=== PATIENT | female | born 1990 | race Caucasian/White ===

== ENCOUNTER → 2017-11-08 | Outpatient (CLI) | payer OTHER ==
[~2017-11-08] MED LIST: MTR600X PO; PRENTAB26 PO
== END | disposition home or self-care (01) ==
LOC: C.LABSPEC 17:27
PROVIDERS: ATTEND Obstetrics & Gynecology
DX: N76.2 Acute vulvitis (principal)

== ENCOUNTER 2018-06-04 10:42 | Emergency (ER) | payer OTHER ==
[~2018-06-04] VITALS: Ht 158.8 cm; Wt 55.8 kg
[2018-06-04 10:45] VITALS: TEMP 36.7; Ht 158.8 cm; Wt 55.8 kg
[2018-06-04] MEDS ORDERED: KETOROLAC TROMETHAMINE 30 MG/ML VIAL IV STA (10:59)
[2018-06-04] MEDS ORDERED: OPTIRAY 320 IV PRN (11:15)
[2018-06-04 11:33] LABS: EOS % 2.2 %; EOS ABS # 0.08 K/uL (0-0.5); HEMATOCRIT 40.4 % (37-47); HEMOGLOBIN 13.8 g/dL (12.0-16.0); LYMPH % 46.2 %; LYMPH ABS # 1.66 K/uL (1.2-3.4); MEAN CELL VOLUME 81.3 fL (80-100); MEAN CORPUSCULAR HEMOGLOBIN 27.8 pg (25-34); MEAN CORPUSCULAR HGB CONC 34.2 g/dl (32-36); MEAN PLATELET VOLUME 9.2 fL (7.4-10.4); MONO % 6.1 %; MONO ABS # 0.22 K/uL (0.11-0.59); NEUT % 45.5 %; NEUT ABS # 1.63 K/uL (1.4-6.5); PLATELET COUNT 254 K/uL (130-400); RED CELL DISTRIBUTION WIDTH CV 13.1 % (11.5-14.5); RED CELL DISTRIBUTION WIDTH SD 39.1 fL (36.4-46.3); WHITE BLOOD COUNT 3.59 K/uL (4.8-10.8)
[2018-06-04 11:53] LABS: ALBUMIN 3.6 gm/dl (3.4-5.0); ALKALINE PHOSPHATASE 42 U/L (45-117); ALT/SGPT 14 U/L (12-78); AST/SGOT 11 U/L (15-37); BLOOD UREA NITROGEN 7 mg/dl (7-18); CALCIUM 8.2 mg/dl (8.5-10.1); CARBON DIOXIDE 25 mmol/L (21-32); CREATININE 0.53 mg/dl (0.60-1.20); GLUCOSE 77 mg/dl (70-99); LIPASE 89 U/L (73-393); POTASSIUM 3.7 mmol/L (3.5-5.1); SODIUM 141 mmol/L (136-145); TOTAL PROTEIN 7.6 gm/dl (6.4-8.2)
--- NOTE | 2018-06-04 12:43 | DIAGNOSTIC IMAGING REPORT ---
CT ABD/PELVIS IV CONTRAST ONLY CLINICAL HISTORY: suprapubic and R lower abdominal pain COMPARISON STUDY: None. TECHNIQUE: Following the IV administration of 92 mL of Optiray-320, CT scan of the abdomen and pelvis was performed from the lung bases to the proximal femurs. Images are reviewed in the axial, sagittal, and coronal planes. IV contrast was administered without complication. A dose lowering technique was utilized adhering to the principles of ALARA. CT DOSE: 287.12 mGy.cm FINDINGS: Lower chest: The heart is normal in size and configuration, without pericardial effusion. The lung bases and pleural spaces are clear. Liver: The contrast-enhanced liver is normal in size, contour, and attenuation. There is no intrahepatic biliary ductal dilatation. The hepatic veins and portal veins are patent. Gallbladder: Unremarkable. Spleen: Normal in size and attenuation. Pancreas: Unremarkable. Adrenal glands: Unremarkable. Kidneys: There is symmetric renal cortical enhancement. The kidneys are normal in size without hydronephrosis. Bowel: There are no transition zones indicate bowel obstruction. There is no acute diverticulitis. The appendix is difficult to visualize on this examination performed without intravenous or oral contrast. There is pericecal fluid present. Peritoneum: There is free pelvic fluid which is greater than expected for physiologic free fluid. Vasculature: The abdominal aorta is normal in course and caliber. Adenopathy: None. Pelvic viscera: Bilateral ovarian follicles are visualized. No uterine masses are evident Skeletal structures: No destructive osseous lesions are seen. IMPRESSION: 1. No evidence of bowel obstruction. No evidence of free air 2. The appendix was not visualized with certainty on this examination performed without the benefit of oral contrast 3. Free pelvic fluid which is greater than expected for physiologic free fluid. In a female of this age with pelvic pain this raises the possibility of a ruptured ovarian cyst. Clinical correlation in this regard is advocated. Electronically signed by: Mukund Abebe M.D. 06/04/2018 12:42 PM Dictated Date/Time: 06/04/2018 12:35 PM
[2018-06-04] MEDS ORDERED: IBUP600T44 PO (12:59)
[2018-06-04 13:08] VITALS: BP 117/74; PULSE 59; O2SAT 100
--- NOTE | 2018-06-04 16:27 | EMERGENCY ROOM VISIT NOTE ---
History Report prepared by Christina: Jessica Arzola Under the Supervision of: Dr. Dada Lazo M.D. 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 She reports when she woke up this morning, her pain was radiating to her back so she came to the ED. She also notes she had some pain while having a bowel movement today which is abnormal for her. She states walking worsens her pain. Pt has increased urinary frequency but denies any fevers, rashes, nausea, SOB, or being around anyone else who is sick. 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 Offered the patient a a referral and information aide however she declined. 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 Negative being around anyone else who is sick Review of Systems See HPI for pertinent positives and negatives. A total of ten systems were reviewed and were otherwise negative. 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 (2) Prolonged , antepartum (3) Supervision of other normal Family History No pertinent family history Social History Smoking Status: Never Smoker Marital Status: in relationship Housing Status: lives with family Current/Historical Medications Scheduled PRN Ibuprofen (Motrin), 600 MG PO TID PRN for Pain Allergies Coded Allergies: No Known Allergies (Unverified , 06/04/18) Physical Exam Vital Signs Date Time Temp Pulse Resp B/P (MAP) Pulse Ox O2 Delivery O2 Flow Rate FiO2 06/04/18 13:08 59 18 117/74 100 06/04/18 12:35 58 16 104/66 99 Room Air 06/04/18 12:06 63 06/04/18 10:45 36.7 70 18 106/66 97 Room Air Physical Exam GENERAL: Awake, alert, well-appearing, in no distress HENT: Normocephalic, atraumatic. Oropharynx unremarkable. EYES: Normal conjunctiva. Sclera non-icteric. NECK: Supple. No nuchal rigidity. RESPIRATORY: Clear to auscultation. No wheezes. Normal respiratory effort. CARDIAC: Normal rate. Normal rhythm. Extremities warm and well perfused. GI: Soft, suprapubic and lower abdominal pain mild to palpation. No rebound, not peritoneal. RECTAL: Deferred. MUSCULOSKELETAL: Atraumatic. Chest examination reveals no tenderness. There is no CVA tenderness to palpation. LOWER EXTREMITIES: Calves are equal size bilaterally and non-tender. No edema NEURO: Normal sensorium. No sensory or motor deficits noted. No facial droop. SKIN: Warm and dry. No rash or jaundice noted. Medical Decision & Procedures Laboratory Results 06/04/18 11:24 Red Blood Count 4.97, Mean Corpuscular Volume 81.3, Mean Corpuscular Hemoglobin 27.8, Mean Corpuscular Hemoglobin Concent 34.2, Mean Platelet Volume 9.2, Neutrophils (%) (Auto) 45.5, Lymphocytes (%) (Auto) 46.2, Monocytes (%) (Auto) 6.1, Eosinophils (%) (Auto) 2.2, Basophils (%) (Auto) 0.0, Neutrophils # (Auto) 1.63, Lymphocytes # (Auto) 1.66, Monocytes # (Auto) 0.22, Eosinophils # (Auto) 0.08, Basophils # (Auto) 0.00 06/04/18 11:24 Test 06/04/18 11:20 06/04/18 11:24 Urine Color YELLOW Urine Appearance CLEAR (CLEAR) Urine pH 7.0 (4.5-7.5) Urine Specific Morrison 1.016 (1.000-1.030) Urine Protein NEG (NEG) Urine Glucose (UA) NEG (NEG) Urine Ketones NEG (NEG) Urine Occult Blood NEG (NEG) Urine Nitrite NEG (NEG) Urine Bilirubin NEG (NEG) Urine Urobilinogen NEG (NEG) Urine Leukocyte Esterase NEG (NEG) White Blood Count 3.59 K/uL (4.8-10.8) Red Blood Count 4.97 M/uL (4.2-5.4) Hemoglobin 13.8 g/dL (12.0-16.0) Hematocrit 40.4 % (37-47) Mean Corpuscular Volume 81.3 fL (80-100) Mean Corpuscular Hemoglobin 27.8 pg (25-34) Mean Corpuscular Hemoglobin Concent 34.2 g/dl (32-36) Platelet Count 254 K/uL (130-400) Mean Platelet Volume 9.2 fL (7.4-10.4) Neutrophils (%) (Auto) 45.5 % Lymphocytes (%) (Auto) 46.2 % Monocytes (%) (Auto) 6.1 % Eosinophils (%) (Auto) 2.2 % Basophils (%) (Auto) 0.0 % Neutrophils # (Auto) 1.63 K/uL (1.4-6.5) Lymphocytes # (Auto) 1.66 K/uL (1.2-3.4) Monocytes # (Auto) 0.22 K/uL (0.11-0.59) Eosinophils # (Auto) 0.08 K/uL (0-0.5) Basophils # (Auto) 0.00 K/uL (0-0.2) RDW Standard Deviation 39.1 fL (36.4-46.3) RDW Coefficient of Variation 13.1 % (11.5-14.5) Immature Granulocyte % (Auto) 0.0 % Immature Granulocyte # (Auto) 0.00 K/uL (0.00-0.02) Anion Gap 9.0 mmol/L (3-11) Est Creatinine Clear Calc Drug Dose 131.4 ml/min Estimated GFR () > 150.0 Estimated GFR (Non- 132.0 BUN/Creatinine Ratio 12.3 (10-20) Calcium Level 8.2 mg/dl (8.5-10.1) Total Bilirubin 0.4 mg/dl (0.2-1) Direct Bilirubin 0.1 mg/dl (0-0.2) Aspartate Amino Transf (AST/SGOT) 11 U/L (15-37) Alanine Aminotransferase (ALT/SGPT) 14 U/L (12-78) Alkaline Phosphatase 42 U/L (45-117) Total Protein 7.6 gm/dl (6.4-8.2) Albumin 3.6 gm/dl (3.4-5.0) Lipase 89 U/L (73-393) Human Chorionic Gonadotropin, Qual NEG (NEG) Laboratory results reviewed by me Medications Administered Medications (Trade) Dose Ordered Sig/Cynthia Route Start Time Stop Time Status Last Admin Dose Admin Ketorolac Tromethamine (Toradol Inj) 15 mg NOW STAT IV 06/04/18 10:59 06/04/18 11:01 DC 06/04/18 11:25 15 MG ED Course 1053: The patient was evaluated in room C11. A complete history and physical exam was performed. 1059: Ordered Toradol Inj 15 mg IV 1254: I reevaluated the patient. Discussed results and discharge instructions: She verbalized understanding and agreement. The patient is ready for discharge. Medical Decision Triage Nursing notes reviewed. Differential diagnosis: Etiologies such as appendicitis, diverticulitis, PUD, biliary pathology, UTI, pancreatitis, obstruction, mesenteric ischemia, aortic pathology, infections, inflammatory bowel disease, renal colic, as well as others were entertained. Patient presents with abdominal pain. Denies trauma or fever. Fairly constant and about a week; states episodes over the past several years like this. States eating and drinking okay. Denies nausea. Denies vaginal complaints of bleeding or significant cramping. Endorses urinary frequency. Doubt this nephrolithiasis, hepatitis, or pancreatitis based on laboratory studies. negative. No leukocytosis. Urinalysis is negative. Labs are unremarkable. Do not believe this is ovarian torsion. CT abdomen and pelvis with no significant acute intra-abdominal process. There is some increase in free fluid in the pelvis consistent with a possible ruptured ovarian cyst. She is having some lower abdominal pain but is not really sided at the present time. Believe her pain may be related to an ovarian cyst that is ruptured. We will send her home on Motrin to help with her pain symptoms and recommend outpatient OB follow-up. Discussed return criteria and she and her are agreeable with this. Medication Reconcilliation Current Medication List: was personally reviewed by me Blood Pressure Screening Patient's blood pressure: Normal blood pressure Blood pressure disposition: Did not require urgent referral Impression Primary Impression: Ruptured ovarian cyst Additional Impression: Abdominal pain Scribe Attestation The scribe's documentation has been prepared under my direction and personally reviewed by me in its entirety. I confirm that the note above accurately reflects all work, treatment, procedures, and medical decision making performed by me. Departure Information Dispostion Home / Self-Care Prescriptions Ibuprofen (Motrin) 600 Mg Tab 600 MG PO TID Y for Pain, #18 TAB With Food Prov: Dada Lazo M.D. 06/04/18 Referrals No Doctor, Assigned (PCP) Forms HOME CARE DOCUMENTATION FORM, IMPORTANT VISIT INFORMATION Patient Instructions My [facility] Additional Instructions Please utilize the prescribed medication to help with your pain. Do not take Advil while on this medicine. If you begin to experience different or more severe pain or other symptoms return here for reevaluation. Otherwise within the next 2-3 weeks follow-up with your civil preparedness coordinator Dr. Segura. Continue to maintain good hydration. Problem Qualifiers Additional Impression: Abdominal pain Abdominal location: lower abdomen, unspecified Qualified Codes: R10.30 - Lower abdominal pain, unspecified
== END 2018-06-04 13:10 | disposition home or self-care (01) ==
LOC: C.EDB 10:44 → C.EDC 13:10
DX: N83.10 Corpus luteum cyst of ovary, unspecified side (principal); R10.30 Lower abdominal pain, unspecified; M54.9 Dorsalgia, unspecified; R35.0 Frequency of micturition

== ENCOUNTER 2022-09-20 12:13 | Inpatient (IN) ==
[2022-09-20] MEDS ORDERED: LIDOCAINE 1% LOCAL 20 ML VIAL INFIL PRN (12:55)
[2022-09-20] MEDS ORDERED: OXYTOCIN 30 UNITS/500 ML BAG IV PRN ×2 (12:55→18:15)
--- NOTE | 2022-09-20 13:06 | History & Physical Report ---
Date of Service September 20, 2022 Assessment & Plan (1) : Plan: 32 yo at 40 5/7 wga presents in labor VSS Fetus cat 1 Labor - expectant management GBS neg desires epidural History of Present Illness Chief Complaint: Labor Primary Care Provider: Mee Dash MD 32 yo at 40 5/7 wga presents w/ ctx increasing in frequency and intensity. 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 hx: G1 2016 at 41 wks G2 current q30d cycles denies hx STIs 05/2019 neg cyto Allergies Allergy/AdvReac Type Severity Reaction Status Date / Time No Known Allergies Allergy Verified 09/17/22 14:24 Home Medications Medication Instructions Recorded Confirmed Type prenat.vits,adrian,[id number] 1 tab PO DAILY 01/28/22 09/20/22 History ferrous sulfate 325 mg (65 mg 325 mg PO DAILY 09/20/22 09/20/22 History iron) tablet Patient History Medical History Abdominal pain Congenital anomaly of heart History of chicken pox Ruptured ovarian cyst Surgical History History of wisdom tooth extraction Family History Mother Hypercholesterolemia Hypertension Father Diabetes Son No problems noted. 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 Beliefs That Will Affect Care: None marital status: marital status details: Antonio (36) [phone] Current Living Situation: Spouse and Family Current Living Situation Comment: Lives with and son, no pets current occupational status: unemployed 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 Other Information That Helps Us Care for You: No Feels Safe at Home: Yes Safety Concerns: Feels Safe At This Time Childhood Exposure to Second-Hand Smoke: No Dental Care, Regularly: Yes Physical Activity Frequency: 1-2 Times per Week Seatbelt Use: always Sunscreen Use: Yes Do you think of yourself as: straight/heterosexual Assistive Devices: None Physical Exam Genitourinary: OB Exam Abdomen: + vertex and + estimated weight (7) Manual OB Exam: + cervical dilation (4-5), + cervical effacement 70% and + station -2 OB Exam Monitor Tracing: + external FHT monitor used, + external uterine monitor used (q6-7) and + category I (130/mod/+accel-decel) Results & Data ([facility]) Vital Signs (Past 12 Hours) Vital Signs Temp Pulse Resp BP 09/20/22 12:30 98.1 F 20 09/20/22 12:21 56 L 131/85 Laboratory Results OB Labs: Blood Type A Positive 02/03/22 Antibody Screen NEGATIVE 02/03/22 Hemoglobin 10.5 g/dl (12.0-16.0) L 06/23/22 Hematocrit 31.1 % (34.1-44.9) L 06/23/22 Mean Corpuscular Volume 81.9 fL (80-100) 02/03/22 Platelet Count 316 K/uL (130-400) 02/03/22 Rubella IgG Antibody Non Immune (Immune) L 02/03/22 Rapid Plasma Reagin Nonreactive (Nonreactive) 02/03/22 Hepatitis B Surface Antigen. NON-REACTIVE (NON-REACTIVE) 02/03/22 Hepatitis C Antibody (EIA) NON-REACTIVE (NON-REACTIVE) 02/03/22 HIV (1&2) Ag and Ab Confirmation NON-REACTIVE (NON-REACTIVE) 02/03/22 Glucose 1 Hour 50 gm Load 163 mg/dl (70-130) H 06/23/22 OB Optional Labs: Chlamydia trachomatis RNA NOT DETECTED (NOT DETECTED) 02/03/22 Neisseria gonorrhoeae RNA NOT DETECTED (NOT DETECTED) 02/03/22 Thyroid Stimulating Hormone (TSH)E 1.290 uIu/ml (0.300-4.500) 10/20/18 Labs Reviewed: low risk panorama--[facility] passed 28 week gtt--[facility] gbs neg --[facility] Diagnostic Findings 08/21 EFW 42%, post plac Coding Level of Care Code None Diagnoses Z34.90
[2022-09-20] MEDS: LACTATED RINGER'S 1,000 ML IV PRN ×2 (13:07→14:06)
[2022-09-20 13:29] LABS: Hematocrit (blood only) 35.1 % (34.1-44.9); Mean Corpuscular Hemoglobin 28.4 pg (25.0-34.0); Mean Corpuscular Hgb Conc 34.2 g/dL (32.0-36.0); Mean Platelet Volume 10.1 fL (9.4-12.3); Platelet Count 286 K/uL (130-400); RDW Coefficient of Variation 13.2 % (11.5-14.5); RDW Standard Deviation 39.8 fL (36.4-46.3); Red Blood Count 4.23 M/uL (3.93-5.22)
[2022-09-20] MEDS ORDERED: ePHEDrine sulfate 50 MG/ML AMP ONE (13:32)
[2022-09-20] MEDS ORDERED: fentaNYL citrate 100 MCG/2 ML VIAL ONE (13:32)
[2022-09-20] MEDS ORDERED: LIDOCAINE 2%/EPINEPHRINE 1:200,000 20 ML SDV ONE (13:32)
[2022-09-20] MEDS ORDERED: SODIUM CHLORIDE 0.9% INJ 10 ML VIAL ONE (13:32)
[2022-09-20] MEDS ORDERED: BUPIVACAINE 0.25% 30 ML VIAL ONE (13:32)
[2022-09-20] MEDS ORDERED: fentaNYL 2MCG/ML ROPIVACAINE 1.25MG/ML 100 ML BAG EPI ONE (13:33)
--- NOTE | 2022-09-20 13:53 | Anesthesiology Consultation ---
Date of Service September 20, 2022 Assessment & Plan Chart Review Chart Review: Acceptable Risk for Labor Epidural Consults Requested none ASA ASA2 Proposed Anesthesia Anesthesia Type: Labor Epidural Risk / Benefits Reviewed With: PT / POA / Parent / Guardian, Accepts Plan and Informed Consent Obtained History Height/Weight Height: 5 ft 2.2 in Weight: 71.214 kg Allergies Allergy/AdvReac Type Severity Reaction Status Date / Time No Known Allergies Allergy Verified 09/17/22 14:24 Medications Home Medications Medication Instructions Recorded Confirmed Last Taken prenat.vits,adrian,xtv-jluj-hqbty 1 tab PO DAILY 01/28/22 09/20/22 09/19/22 ferrous sulfate 325 mg (65 mg 325 mg PO DAILY 09/20/22 09/20/22 09/20/22 iron) tablet Active Medications Generic Name Dose Route Start Last Admin Trade Name Freq PRN Reason Stop Dose Admin Lactated Ringer's 1,000 mls @ 125 mls/hr 09/20/22 12:55 09/20/22 13:07 Lr IV 09/22/22 12:54 999 mls/hr .Q8H PRN Administration L&D Protocol Protocol Past Medical History Medical History Abdominal pain Congenital anomaly of heart History of chicken pox Ruptured ovarian cyst Exercise / Class Metabolic Activity II 4-5 Yardwork/Stairs/Walk up hill Past Family History Family History Mother Hypercholesterolemia Hypertension Father Diabetes Son No problems noted. Other Congenital heart disease Kidney disease No family history of adverse response to anesthesia Denies family history of Ovarian cancer Prostate cancer Myocardial infarction Breast cancer Colorectal cancer Past Surgical History Surgical History History of wisdom tooth extraction Past Anesthesia History No Hx of Anesthesia Complications and No Family Hx of Anesthesia Complications History of PONV No Hx of PONV and No Hx of Motion Sickness Social History Smoking Status: Never smoker Hx Alcohol Use: No Hx Substance Use: No substance use type: does not use Physical Exam Vital Signs Last Vital Signs Temp 98.1 F 09/20/22 12:30 Pulse 62 09/20/22 13:48 Resp 20 09/20/22 12:30 BP 131/85 09/20/22 12:21 Pulse Ox 99 12/11/22 13:48 ENMT Mouth: no dentition abnormality Thyromental Distance: > or= 3.5 Finger Breadths Mallampati Class: II Neck normal visual inspection Respiratory normal respiratory effort Auscultation: lungs clear to auscultation bilaterally Cardiovascular Rate/Rhythm: regular rate and regular rhythm Testing Laboratory Results 09/20/22 13:01
[2022-09-20] MEDS ORDERED: NALOXONE HCL 0.4 MG/1 ML VIAL/CARP IV PRN (14:12)
[2022-09-20] MEDS ORDERED: ePHEDrine sulfate 50 MG/ML AMP IV PRN (14:12)
[2022-09-20] MEDS ORDERED: fentaNYL 2MCG/ML ROPIVACAINE 1.25MG/ML 100 ML BAG EPI PRN (14:12)
[2022-09-20] MEDS ORDERED: NALBUPHINE HCL INJ 10 MG/ML AMP IV PRN (14:12)
[2022-09-20] MEDS ORDERED: NALOXONE HCL 1 MG in SODIUM CHLORIDE 0.9% 1000ML 1,000 ML IV PRN (14:12)
[2022-09-20] MEDS ORDERED: diphenhydrAMINE 50 MG/ML VIAL IV PRN (14:12)
[2022-09-20] MEDS ORDERED: ONDANSETRON INJ 2 MG/ML 2 ML VIAL IV PRN (14:12)
--- NOTE | 2022-09-20 15:19 | Labor Progress Brief Note ---
Date of Service September 20, 2022 Subjective comfortable /w epidural Assessment & Plan (1) : Plan: 32 yo at 40 5/7 wga presents in labor VSS Fetus cat 1 Labor - SROM noted, pt thinks had some leaking just before epidural. Will recheck in few hours GBS neg epidural in place Admission and Anticipated Discharge Date Admission Date: September 20, 2022 Physical Exam Genitourinary: Manual OB Exam: + cervical dilation 5 cm, + cervical effacement 70%, + station -2 and + amniotic fluid (SROM) clear and nitrazine positive OB Exam Monitor Tracing: + external FHT monitor used, + external uterine monitor used (q6-7) and + category I (120/mod/+accel-decel) Results & Data ([facility]) Vital Signs (Past 12 Hours) Vital Signs Temp Pulse Resp BP Pulse Ox 09/20/22 12:30 98.1 F 20 09/20/22 15:13 99 09/20/22 15:13 56 L 09/20/22 15:10 65 09/20/22 15:10 117/71 09/20/22 15:00 18 09/20/22 15:00 18 09/20/22 15:08 97 09/20/22 15:08 60 09/20/22 15:04 66 09/20/22 15:04 113/74 09/20/22 15:03 97 09/20/22 15:03 65 09/20/22 15:00 67 09/20/22 15:00 112/63 09/20/22 14:58 98 09/20/22 14:58 67 09/20/22 14:53 98 09/20/22 14:53 67 09/20/22 14:54 66 09/20/22 14:54 117/62 09/20/22 14:50 80 09/20/22 14:50 137/64 09/20/22 14:48 96 09/20/22 14:48 88 09/20/22 14:30 20 09/20/22 14:30 99.0 F 20 09/20/22 14:44 57 L 09/20/22 14:44 133/83 09/20/22 14:43 98 09/20/22 14:43 57 L 09/20/22 14:40 62 09/20/22 14:40 119/66 09/20/22 14:38 97 09/20/22 14:38 63 09/20/22 14:34 61 09/20/22 14:34 128/62 09/20/22 14:33 97 09/20/22 14:33 62 09/20/22 14:30 66 09/20/22 14:30 155/75 H 09/20/22 14:28 97 09/20/22 14:28 70 09/20/22 14:23 97 09/20/22 14:23 58 L 09/20/22 14:18 97 09/20/22 14:18 60 09/20/22 14:18 58 L 09/20/22 14:18 120/67 09/20/22 14:16 61 09/20/22 14:16 113/68 09/20/22 14:14 57 L 09/20/22 14:14 115/72 09/20/22 14:13 100 09/20/22 14:13 61 09/20/22 14:13 58 L 09/20/22 14:13 117/71 09/20/22 14:11 57 L 09/20/22 14:11 128/69 09/20/22 14:08 98 09/20/22 14:08 67 09/20/22 14:09 64 09/20/22 14:09 132/65 09/20/22 14:05 60 09/20/22 14:05 133/85 09/20/22 14:03 98 09/20/22 14:03 70 09/20/22 13:58 99 09/20/22 13:58 61 09/20/22 13:53 100 09/20/22 13:53 72 09/20/22 13:48 99 09/20/22 13:48 62 09/20/22 13:43 100 09/20/22 13:43 85 09/20/22 13:38 100 09/20/22 13:38 65 09/20/22 12:21 56 L 131/85 Coding Level of Care Code None Diagnoses Z34.90
--- NOTE | 2022-09-20 18:05 | Delivery Summary ---
Vaginal Delivery Summary Date of Service September 20, 2022 Vaginal Delivery Summary and 2nd Degree LAC PREOPERATIVE DIAGNOSIS: 1. Single intrauterine at 40 5/7 wga 2. Labor 3. Hx congenital heart defect POSTOPERATIVE DIAGNOSIS: 1. Single intrauterine at 40 5/7 wga 2. Labor 3. Hx congenital heart defect 4. Delivered PROCEDURE: 1. Normal spontaneous vaginal delivery. SURGEON: Nathalia Borges MD ANESTHESIA: Epidural. ESTIMATED BLOOD LOSS: 300 mL FLUIDS: Continuous LR. URINE OUTPUT: None. COMPLICATIONS: None. CONDITION: Stable. INDICATIONS: 32 yo at 40 5/7 wga presented earlier today with contractions increasing in frequency and intensity. She was found to be 5cm on arrival. She had SROM and received epidural. She progressed to complete and desired to push. FINDINGS: A viable female infant, weight pending with Apgars of 8 and 9 at 1 and 5 minutes respectively. SPECIMEN: Cord blood OPERATIVE REPORT: The patient progressed to 10 cm, 100% effaced and +2 station, pushed over intact perineum with anesthesia to deliver a viable female infant, weight and Apgars as above. Head of delivered in JOSH position. No nuchal cord was present. Body and shoulders were delivered without difficulty. was delivered to maternal abdomen and nursing staff. Delayed cord clamping was performed for 60 seconds. Cord was clamped and cut. Cord blood was obtained. Placenta delivered spontaneously intact with 3-vessel cord. IV oxytocin and fundal massage were given for excellent hemostasis. Vagina, cervix, perineum, and placenta were inspected. A second degree and vaginal laceration were noted and repaired using 3-0 vicryl, there was good hemostasis. Sponge and needle counts correct x2. No sponges were left behind. Mother and stable in immediate period. [facility] Vaginal Delivery Charge Vaginal Delivery Codes: 42175 global code for the antepartum, delivery, and post- Delivery Type Details: and 2nd Degree LAC
--- NOTE | 2022-09-20 18:14 | Anesthesia Procedure Note ---
Date of Service September 20, 2022 Anesthesia Post Epidural Note Vital Signs Vital Signs: Temp Pulse Resp BP Pulse Ox 37.2 C 58 L 20 127/72 100 09/20/22 14:30 09/20/22 18:09 09/20/22 17:15 09/20/22 18:09 09/20/22 17:48 Pain Intensity Lower Abdomen: Pain Intensity: 4 Notes Mental Status: alert / awake / arousable and participated in evaluation Nausea / Vomiting: adequately controlled Pain: adequately controlled Airway Patency, RR, SpO2: stable & adequate BP & HR: stable & adequate Hydration State: stable & adequate Neuraxial Anesthesia: was administered and sensory block is resolving Anesthetic Complications: no major complications apparent and Pt Satisfied with anesthetic care Epidural: Removed without complications and With tip intact
[2022-09-20] MEDS ORDERED: DIPHTHERIA/TETANUS/PERTUSSIS 0.5 ML SYR/VIAL IM ONE (18:15)
[2022-09-20] MEDS ORDERED: MEASLES, MUMPS & RUBELLA VIRUS VIAL SQ ONE (18:15)
[2022-09-20] MEDS ORDERED: bisacodyL 10 MG SUPP PR PRN (18:15)
[2022-09-20] MEDS ORDERED: HYDROCORTISONE ACETATE 25 MG SUPP PR PRN (18:15)
[2022-09-20] MEDS ORDERED: BENZOCAINE 20% AER SPR 82.5 GM CAN EXT PRN (18:15)
[2022-09-20] MEDS: IBUPROFEN 600 MG TAB PO PRN (19:00)
[2022-09-20] MEDS: DOCUSATE SODIUM 100 MG CAP PO SCH (21:14)
[2022-09-20] MEDS: ACETAMINOPHEN 325 MG TAB PO PRN (21:58)
[2022-09-21] MEDS: IBUPROFEN 600 MG TAB PO PRN ×4 (02:12→18:44)
[2022-09-21] MEDS: ACETAMINOPHEN 325 MG TAB PO PRN (04:30)
--- NOTE | 2022-09-21 04:53 | Obstetrical Progress Note ---
Date of Service September 21, 2022 Assessment & Plan (1) care following vaginal delivery: (2) Vaginal delivery: Plan - Overall, feeling well and eating well today - feeding going well without concern - Urinating and passing gas appropriately - Ambulating well w/in room - Pain controlled w/ Ibuprofen and Tylenol - Vitals stable and wnl - Hgb 12.0 on 09/20 - Routine PP care progressing well, lochia discussed and stable - Anticipate discharge at 24-48 hours PP - Recommending f/u outpatient in 6 weeks Admission and Anticipated Discharge Date Admission Date: September 20, 2022 Supervising Physician Co-Signing Physician Notes Resident Physician Supervision Note: I interviewed and examined the patient. Discussed with Dr. Goldberg and agree with findings and plan as documented in the note. Any exceptions or clarifications are listed here: PP1 s/p , doing well. VSS, exam benign and wnl. Continue routine pp care Documented By: Nathalia Borges MD Subjective Patient is a 32F y/o female who is PPD #1 following delivery of female i nfant at 40w5d. She reports feeling well overall this morning, but endorses ongoing abdominal pain and vaginal bleeding. Nursing notes that patient's vaginal bleeding has remained stable and there have been no concerning clots passed. - Ambulation - well throughout room - Voiding/Davis - independent voids, no dysuria or pressure - Gas/Stool - passing gas, no bowel movement - Diet - regular, no nausea or emesis - Lochia - unchanged, heavier than normal period, index finger sized clots - Feeding Type - breast feeding w/o concern, a/w uterine cramping - Pain Level - 9/10, managed with Ibuprofen and Tylenol Review of Systems - Denies fever, chills, sweats - Denies shortness of breath, difficulty breathing, chest pain, palpitations, chest pressure. - Denies breast pain. - Denies dysuria. - Denies headache or changes in vision. Physical Exam Physical Exam: General: Alert, oriented. No acute distress. Cardiac: RRR, normal S1/S2, no murmurs/rubs/gallops. Respiratory: Non-labored, CTAB, no wheezes/rales/rhonchi. Symmetric chest rise. Abdomen: Soft, nontender, nondistended. Bowel sounds present. Uterus: Uterine fundus firm, palpable 1 cm below umbilicus. Lower Extremities: No lower extremity edema or swelling. No deep calf pain. Kassie's negative bilaterally. Results & Data ([facility]) Vital Signs (Past 12 Hours) Vital Signs Temp Pulse Pulse Resp BP BP Pulse Ox 09/20/22 23:00 36.6 C 59 L 16 127/76 100 09/20/22 20:47 36.8 C 78 16 127/75 94 09/20/22 19:39 37.1 C 18 09/20/22 19:10 18 09/20/22 18:39 18 09/20/22 18:24 18 09/20/22 18:09 16 09/20/22 17:54 18 09/20/22 19:39 74 09/20/22 19:39 121/67 09/20/22 19:24 85 09/20/22 19:24 129/70 09/20/22 19:10 93 H 09/20/22 19:10 135/80 09/20/22 18:59 72 09/20/22 18:59 121/67 09/20/22 18:55 91 H 09/20/22 18:55 149/81 H 09/20/22 18:40 78 09/20/22 18:40 125/71 09/20/22 18:24 73 09/20/22 18:24 129/80 09/20/22 17:15 20 09/20/22 17:15 20 09/20/22 18:09 58 L 09/20/22 18:09 127/72 09/20/22 17:54 65 09/20/22 17:54 121/63 09/20/22 17:48 100 09/20/22 17:48 65 09/20/22 17:43 99 09/20/22 17:43 63 09/20/22 17:42 60 09/20/22 17:42 120/66 09/20/22 17:38 98 09/20/22 17:38 57 L 09/20/22 17:33 96 09/20/22 17:34 91 09/20/22 17:33 86 09/20/22 17:34 92 H 09/20/22 17:28 98 09/20/22 17:28 78 09/20/22 17:23 100 09/20/22 17:24 92 09/20/22 17:23 83 09/20/22 17:24 90 09/20/22 17:18 99 09/20/22 17:18 80 09/20/22 17:00 18 09/20/22 17:00 18 09/20/22 17:13 100 09/20/22 17:13 64 09/20/22 17:08 97 09/20/22 17:08 71 09/20/22 17:03 100 09/20/22 17:03 62 09/20/22 16:58 100 09/20/22 16:58 60 09/20/22 16:57 74 09/20/22 16:57 125/72 09/20/22 16:53 99 09/20/22 16:53 62 O2 Del Method 09/20/22 23:00 Room Air 09/20/22 20:47 Room Air 09/20/22 19:39 09/20/22 19:10 09/20/22 18:39 09/20/22 18:24 09/20/22 18:09 09/20/22 17:54 09/20/22 19:39 09/20/22 19:39 09/20/22 19:24 09/20/22 19:24 09/20/22 19:10 09/20/22 19:10 09/20/22 18:59 09/20/22 18:59 09/20/22 18:55 09/20/22 18:55 09/20/22 18:40 09/20/22 18:40 09/20/22 18:24 09/20/22 18:24 09/20/22 17:15 09/20/22 17:15 09/20/22 18:09 09/20/22 18:09 09/20/22 17:54 09/20/22 17:54 09/20/22 17:48 09/20/22 17:48 09/20/22 17:43 09/20/22 17:43 09/20/22 17:42 09/20/22 17:42 09/20/22 17:38 09/20/22 17:38 09/20/22 17:33 09/20/22 17:34 09/20/22 17:33 09/20/22 17:34 09/20/22 17:28 09/20/22 17:28 09/20/22 17:23 09/20/22 17:24 09/20/22 17:23 09/20/22 17:24 09/20/22 17:18 09/20/22 17:18 09/20/22 17:00 09/20/22 17:00 09/20/22 17:13 09/20/22 17:13 09/20/22 17:08 09/20/22 17:08 09/20/22 17:03 09/20/22 17:03 09/20/22 16:58 09/20/22 16:58 09/20/22 16:57 09/20/22 16:57 09/20/22 16:53 09/20/22 16:53 Resident Activity Tracking Resident Involvement: Resident Care Provided Care Provided: OB Delivery
[2022-09-21] MEDS: PRENATAL VITAMIN 1 TAB PO SCH (08:31)
[2022-09-21] MEDS: FERROUS SULFATE 325 MG TAB PO SCH (08:31)
[2022-09-21] MEDS: DOCUSATE SODIUM 100 MG CAP PO SCH ×2 (08:31→20:17)
[2022-09-21] MEDS ORDERED: bisacodyL 5 MG TABEC PO SCH (20:00)
[2022-09-22] MEDS: IBUPROFEN 600 MG TAB PO PRN ×3 (01:00→13:14)
[2022-09-22] MEDS: ACETAMINOPHEN 325 MG TAB PO PRN (02:50)
--- NOTE | 2022-09-22 04:29 | Obstetrical Progress Note ---
Date of Service September 22, 2022 Assessment & Plan (1) care following vaginal delivery: Plan - Overall, feeling well and eating well today - ongoing w/o concern - Urinating and stooling appropriately - Ambulating well w/in room - Pain controlled w/ Ibuprofen - Vitals stable and wnl - Hgb 12.0 on 09/20 - Routine PP care progressing well - Anticipate discharge today - Recommending f/u outpatient in 6 weeks Admission and Anticipated Discharge Date Admission Date: September 20, 2022 Supervising Physician Co-Signing Physician Notes Resident Physician Supervision Note: I interviewed and examined the patient. Discussed with Dr. Garibay and agree with findings and plan as documented in the note. Any exceptions or clarifications are listed here: [ ] Documented By: Adrianna Breaux MD, FACOG Subjective Patient is a 32F y/o female who is PPD #1 following delivery of female at 40w5d. Patient is feeling well today and wishes to go home. - Ambulation - well throughout room - Voiding/Davis - independent voids, no dysuria or pressure - Gas/Stool - passing gas, moving bowels w/o difficulty - Diet - regular, no nausea or emesis - Lochia - moderate amount, w/o clots, diminishing - Uterine/left thigh cramping w/ - Infant Feeding Type - breast feeding w/o concern - Pain Level - 4/10, managed with Ibuprofen and Tylenol Review of Systems - Denies fever, chills, sweats - Denies shortness of breath, difficulty breathing, chest pain, palpitations, chest pressure. - Denies breast pain. Endorses left sided nipple pain. - Denies dysuria. - Denies headache or changes in vision. Physical Exam Physical Exam: General: Alert, oriented. No acute distress. Cardiac: RRR, normal S1/S2, no murmurs/rubs/gallops. Respiratory: Non-labored, CTAB, no wheezes/rales/rhonchi. Symmetric chest rise. Abdomen: Soft, nontender, nondistended. Bowel sounds present. Uterus: Uterine fundus firm, palpable 2 cm below umbilicus. Lower Extremities: No lower extremity edema or swelling. No deep calf pain. Kassie's negative bilaterally. Results & Data ([facility]) Vital Signs (Past 12 Hours) Vital Signs Temp Pulse Resp BP Pulse Ox O2 Del Method 09/21/22 20:05 36.6 C 62 18 125/78 98 Room Air Resident Activity Tracking Resident Involvement: Resident Care Provided Care Provided: OB Delivery
[2022-09-22] MEDS: FERROUS SULFATE 325 MG TAB PO SCH (07:58)
[2022-09-22] MEDS: PRENATAL VITAMIN 1 TAB PO SCH (07:58)
[2022-09-22] MEDS: DOCUSATE SODIUM 100 MG CAP PO SCH (11:07)
== END 2022-09-22 15:15 | disposition home or self-care (01) | DRG 807 ==
LOC: OPB 12:13 → 4S1 12:15 → 4E2 20:25